=== PATIENT | male | born 1940 | race Caucasian/White ===

== ENCOUNTER → 2020-06-25 | Outpatient (CLI) | payer OTHER, BC | LOC: HYPER 09:10 | PROVIDERS: ATTEND Emergency Medicine Emergency Medical Services | DX: S61.511A Laceration without foreign body of right wrist, initial encounter (principal); G89.29 Other chronic pain; M19.90 Unspecified osteoarthritis, unspecified site; W19.XXXA Unspecified fall, initial encounter; Y93.89 Activity, other specified; Y92.89 Other specified places as the place of occurrence of the external cause; Y99.8 Other external cause status ==